=== PATIENT | male | born 1995 | race Caucasian/White ===

== ENCOUNTER 2018-01-28 18:51 | Emergency (ER) | payer BC ==
[~2018-01-28] VITALS: Ht 182.9 cm; Wt 77.3 kg
[2018-01-28 18:54] VITALS: BP 141/81; PULSE 80; RESP 18; TEMP 97.7; O2SAT 100
[2018-01-28] MEDS ORDERED: SODIUM CHLORIDE 0.9% FLUSH 10 ML FLUSH IV FLUSH PRN (19:45)
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
[2018-01-28] MEDS ORDERED: IOHEXOL 350 MG/ML 10 ML VIAL (for RAD DIAG) IVCONTRAST ONE (20:30)
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
--- NOTE | 2018-01-28 21:38 | PD ---
Physical Exam Date Seen by Provider: Jan 28, 2018 Time Seen by Provider: 21:35 Narrative I resumed care of patient from GOPAL Jensen waiting for CT soft tissue neck with IV contrast. Please see previous documenation for full history and physical. Ct shows small submandibular hematoma just beneath platysma without significant mass effect or evidence of active bleeding. I discussed the findings with my attending physician, Dr. Matias, who reviewed CT imaging. Patient is not on any anticoagulants. He denies any difficulty swallowing or breathing. Airway is not affected per my attending and patient can be discharged. He is to return for any acute, worsening of symptoms. He verbalizes agreement and understanding. Data Data Last Documented VS Vital Signs Date Time Temp Pulse Resp B/P (MAP) Pulse Ox O2 Delivery O2 Flow Rate FiO2 01/28/18 18:54 97.7 80 18 141/81 (101) 100 Orders Orders Clavicle (01/28/18 ) Elbow, Complete (4 Vws) (01/28/18 ) Ct Brain W/O Iv Contrast(Rout) (01/28/18 ) Iv Access Insert/Monitor (01/28/18 19:40) Sodium Chloride 0.9% Flush (Ns Flush) (01/28/18 19:45) Ct Soft Tiss Neck W Iv Cont (01/28/18 ) Iohexol 350 Inj (Omnipaque 350 Inj) (01/28/18 20:30) MDM Supervised Visit with ANN: No Diagnosis Primary Impression: Cervical strain Qualified Codes: S16.1XXA - Strain of muscle, fascia and tendon at neck level , initial encounter Additional Impressions: Contusion Qualified Codes: S10.0XXA - Contusion of throat, initial encounter Head injury Qualified Codes: S09.90XA - Unspecified injury of head, initial encounter Acromioclavicular joint injury Qualified Codes: S49.92XA - Unspecified injury of left shoulder and upper arm , initial encounter Referrals: Primary Care Physician Additional Instruction: Tylenol and ibuprofen as needed for pain. Apply ice to areas of swelling. Sling as needed for comfort. Follow-up with her primary doctor for recheck Med/Other Pt SpecificInfo: Prescription(s) given Scripts No Active Prescriptions or Reported Meds Disposition: DISCHARGE HOME Condition: Stable Makeda Guevara GOPAL Jan 28, 2018 21:38
== END 2018-01-28 21:53 | disposition home or self-care (01) ==
LOC: NEPK 18:51
DX: S16.1XXA Strain of muscle, fascia and tendon at neck level, initial encounter (principal); S10.0XXA Contusion of throat, initial encounter; S09.90XA Unspecified injury of head, initial encounter; S49.92XA Unspecified injury of left shoulder and upper arm, initial encounter; S00.83XA Contusion of other part of head, initial encounter; S10.91XA Abrasion of unspecified part of neck, initial encounter; V18.4XXA Pedal cycle driver injured in noncollision transport accident in traffic accident, initial encounter
CPT/HCPCS: 70450; 70491; 73000; 73080; 99284; Q9967; L0150